=== PATIENT | male | born 1980 ===

== ENCOUNTER 2020-08-23 17:44 | Inpatient (IN) ==
[2020-08-23 18:19] LABS: ABS Basophils 0.1 10^3/ul (0-0.2); ABS Eosinophils 0.1 10^3/ul (0-0.6); ABS Lymphocytes 1.5 10^3/ul (1.0-4.8); ABS Monocytes 0.8 10^3/ul (0-0.8); ABS Neutrophils 15.2 10^3/ul (1.5-7.7); Eosinophil % 0.4 %; Hematocrit 47 % (42-52); Hemoglobin 16.1 g/dL (14.0-18.0); Lymphocyte % 8.5 %; Mean Corpuscular HGB Conc 34 g/dL (31-36); Mean Corpuscular Hemoglobin 29 pg (27-31); Mean Corpuscular Volume 83 fL (80-94); Mean Platelet Volume 6.8 fL (7.4-10.4); Platelet Count 221 10^3/uL (150-450); Red Blood Count 5.65 10^6 /uL (4.18-5.48); Red Cell Distribution Width 14 % (10-15); White Blood Count 17.7 10^3/uL (3.5-10.8)
[2020-08-23 18:41] LABS: Albumin/Globulin Ratio 1.8 (1-3); BUN/Creatinine Ratio 9.9 (8-20); C Reactive Protein 8.79 mg/L (<8.01); Calcium 10.4 mg/dL (8.6-10.3); EGFR Non-African American 66.1 (>60); Globulin 2.8 g/dL (2-4); Potassium 3.8 mmol/L (3.5-5.0); Total Bilirubin 0.9 mg/dL (0.2-1.0); Total Protein 7.8 g/dL (6.4-8.9)
[2020-08-23] MEDS ORDERED: Iohexol 300 (CONTRAST) 10 ML SDV IV ONE (18:58)
[2020-08-23] MEDS ORDERED: Piperacillin/Tazobac ADVAN 3.375 GM in NS 0.9% 100 ml BAG 100 ML IV ONE (19:46)
[2020-08-23] MEDS ORDERED: metroNIDAZOLE IV 500 MG/100ML 500 MG/100 ML BAG IVPB ONE (19:54)
[2020-08-23] MEDS ORDERED: Ciprofloxacin 400mg IVPREMIX 400 MG/200 ML BAG IVPB ONE (19:54)
[2020-08-23] MEDS ORDERED: NS 0.9% 1000 ml BAG 1,000 ML IV ONE (20:45)
[2020-08-23] MEDS ORDERED: Lidocaine 2% PF 5 ML VIAL ONE (21:43)
[2020-08-23] MEDS ORDERED: Rocuronium 50 mg VIAL 10 mg/ml 5 ml VIAL (50 mg) ONE (21:43)
[2020-08-23] MEDS ORDERED: Propofol 10 MG/ML 20 ML BTL ONE (21:43)
[2020-08-23] MEDS ORDERED: Succinylcholine 200 mg VIAL 20 mg/ml 10 ml VIAL (200 mg) ONE (21:43)
[2020-08-23] MEDS ORDERED: fentaNYL 100 mcg/2 ml 50 MCG/ML VIAL ONE ×2 (21:43→23:35)
[2020-08-23] MEDS ORDERED: Midazolam 5 mg/5 ml VIAL 1 mg/ml 5 ml VIAL (5 mg) ONE (21:43)
[2020-08-23] MEDS ORDERED: Bupivacaine 0.5% SDV PF 30ML VIAL ONE (21:53)
[2020-08-23] MEDS ORDERED: Sodium Citrate/Citric Acid LIQ 15 ML UDC PO ONE (22:03)
[2020-08-23] MEDS ORDERED: Buffered Lidocaine 1% SYRIN 1 ml INTRADERM ONE (22:03)
[2020-08-23] MEDS ORDERED: fentaNYL 100 mcg/2 ml 50 MCG/ML VIAL IV PRN (22:04)
[2020-08-23] MEDS ORDERED: Naloxone 0.4 mg VIAL 0.4 mg/ml 1 ml VIAL IV PRN (22:04)
[2020-08-23] MEDS ORDERED: HYDROcodone/ACETAMIN 5/325 mg TAB PO PRN (22:04)
[2020-08-23] MEDS ORDERED: Acetaminophen IV 1 GM/100ML 1,000 MG/100 ML VIAL IVPB ONE (22:04)
[2020-08-23] MEDS ORDERED: DiMENhydriNATE IV 50 mg/ml 1 ml VIAL IV PUSH PRN (22:04)
[2020-08-23] MEDS ORDERED: Morphine 4 MG/ML VIAL (1 ml) IV PRN (22:04)
[2020-08-23] MEDS ORDERED: Sodium Citrate/Citric Acid LIQ 15 ML UDC ONE (22:05)
[2020-08-23] MEDS ORDERED: Lactated Ringers 1000 ml BAG 1,000 ML IV SCH (23:00)
[2020-08-23] MEDS ORDERED: Acetaminophen IV 1 GM/100ML 100 ML ONE (23:35)
[2020-08-23] MEDS ORDERED: Ondansetron 4 mg VIAL 2 MG/ML 2 ml VIAL IV PRN (23:40)
[2020-08-23] MEDS ORDERED: oxyCODONE/Acetamin 5/325 mg TAB PO PRN (23:40)
[2020-08-23] MEDS ORDERED: Ciprofloxacin 400mg IVPREMIX 400 MG/200 ML BAG IVPB SCH (23:45)
[2020-08-24] MEDS: Lactated Ringers 1000 ml BAG 1,000 ML IV SCH ×2 (01:25→11:59)
[2020-08-24] MEDS: metroNIDAZOLE IV 500 MG/100ML 500 MG/100 ML BAG IVPB SCH ×2 (05:25→13:42)
[2020-08-24 05:43] LABS: Hematocrit 38 % (42-52); Hemoglobin 12.7 g/dL (14.0-18.0); Mean Corpuscular HGB Conc 33 g/dL (31-36); Mean Corpuscular Hemoglobin 28 pg (27-31); Mean Corpuscular Volume 84 fL (80-94); Mean Platelet Volume 6.9 fL (7.4-10.4); Platelet Count 172 10^3/uL (150-450); Red Blood Count 4.52 10^6 /uL (4.18-5.48); Red Cell Distribution Width 14 % (10-15); White Blood Count 11.1 10^3/uL (3.5-10.8)
[2020-08-24 06:01] LABS: BUN/Creatinine Ratio 7.8 (8-20); Calcium 8.8 mg/dL (8.6-10.3); EGFR African American 84.8 (>60); EGFR Non-African American 70.1 (>60); Potassium 4.4 mmol/L (3.5-5.0)
[2020-08-24 07:10] LABS: ABS Basophils 0.1 10^3/ul (0-0.2); ABS Eosinophils 0.1 10^3/ul (0-0.6); ABS Lymphocytes 2.1 10^3/ul (1.0-4.8); ABS Monocytes 0.8 10^3/ul (0-0.8); ABS Neutrophils 8.1 10^3/ul (1.5-7.7); Eosinophil % 0.8 %; Lymphocyte % 18.6 %
[2020-08-24] MEDS ORDERED: Ciprofloxacin 400mg IVPREMIX 400 MG/200 ML BAG IVPB SCH (09:00)
[2020-08-24 13:30] VITALS: BP 137/71
== END 2020-08-24 15:17 | disposition home or self-care (01) | DRG 331 ==
LOC: ED 17:44 → OR 21:15 → SSU 21:50 → AA 23:40 → SSU 08-24 01:11
PROVIDERS: ADMIT Surgery; ATTEND Surgery